=== PATIENT | female | born 1955 | race Hispanic/Latino ===

== ENCOUNTER 2018-09-17 17:53 | Emergency (ER) | payer OTHER ==
[~2018-09-17] VITALS: Ht 162.6 cm; Wt 90.7 kg
[2018-09-17] MEDS ORDERED: ASPIRIN 81 MG CHEW TAB PO ONE (18:30)
--- NOTE | 2018-09-17 19:02 | Diagnostic Imaging Report ---
Exam: Head CT without contrast Indication: Left sided numbness Comparison: None Technique: Axial images were obtained from the skull base to the vertex. Coronal and sagittal reconstructions obtained from the axial data. Dose modulation, iterative reconstruction, and/or weight based adjustment of the mA/kV was utilized to reduce the radiation dose to as low as reasonably achievable. Findings: Scalp/skull: No abnormalities. No fractures, blastic or lytic lesions. Incidental hyperostosis frontalis. Extra-axial spaces: No masses. No fluid collections. Brain sulci: Appropriate for age. Ventricles: Normal in size and configuration. No hydrocephalus. Parenchyma: No abnormal densities. No masses, hemorrhage, acute or chronic cortical vascular insults. Sellar/suprasellar region: No abnormalities Craniocervical junction: Patent foramen magnum. No Chiari one malformation. Findings: Mucous retention cyst within the left maxillary sinus. IMPRESSION: No intracranial abnormalities. A preliminary report was provided by Dr. Garzon on 09/17/2018 7:02 PM. I have reviewed the images and agree with the findings in the preliminary report. Signed by: Dr. Farzaneh Pérez M.D. on 09/17/2018 7:57 PM
== END 2018-09-17 20:49 | disposition home or self-care (01) ==
LOC: FSED 17:53
DX: R51 Headache (principal); I10 Essential (primary) hypertension; E11.65 Type 2 diabetes mellitus with hyperglycemia
CPT/HCPCS: 70450; 80053; 81003; 82553; 84484; 99284

== ENCOUNTER 2019-10-31 18:30 | Emergency (ER) | payer OTHER ==
[~2019-10-31] VITALS: Ht 162.6 cm; Wt 91.3 kg
--- OUTSIDE RECORDS SUMMARY | 2019-10-31 18:33 | XMS REPORT ---
Author Author [facility] Address Unknown Phone Unavailable Care Team [facility]iders [facility] Director Name Role Phone Viktoriya MAYFIELD Unavailable Unavailable Problems This patient has no known problems. Allergies, Adverse Reactions, Alerts This patient has no known allergies or adverse reactions. Medications This patient has no known medications. Results Test Description Test Time Test Comments Text Results Atomic Results Result Comments SCR MAMM BILATERAL AIDA CAD DIGITAL 2019-01-14 10:48:15 - SCR MAMM BILATERAL AIDA CAD DIGITALBILATERAL DIGITAL SCREENING MAMMOGRAM 3D/2D WITH CAD: 01/12/2019CLINICAL: Asymptomatic. Digital breast tomosynthesis was performed in addition to routine CC and MLO views. Current mammographic images were evaluated by either a [employer] M-Vu or a [employer] ImageChecker CAD (computer aided detection system). Comparison is made to exams dated 09/06/2014 mammogram, mammogram, and 07/12/2009 mammogram - [facility]. There are scattered fibroglandular tissues in both breasts. No suspicious mass, architectural distortion, malignant type calcification, or lymph node abnormality detected. Breast architecture is stable compared to prior exams.IMPRESSION: NEGATIVEThere is no mammographic evidence of malignancy. Resume annual screening mammography in one year. La munoz/penrad:01/14/2019 10:48:15 Audit Associate: Mona MCKEON, [facility] sent: BIRADS 1-2 Normal Mammogram BI-RADS: [address] BRAIN WO-HOPD 2018-09-17 18:55:[address] [address] Patient Name: LIZBETH MONTALVO MR #: [id number] : 1955 Age/Sex: 62/F Req #: [id number] Adm Physician: Ordered by: WILLY JAMES MD Report #: [id number] Location: [facility] Room/Bed: Procedure: [id number] HOPD/CT BRAIN WO-HOPD Exam Date: 09/17/18 Exam Time: 1824 REPORT STATUS: Signed Exam: Head CT without contrast Indication: Left sided numbness Comparison: None Technique: Axial images were obtained from the skull base to the vertex. Coronal and sagittal reconstructions obtained from the axial data. Dose modulation, iterative reconstruction, and/or weight based adjustment of the mA/kV was utilized to reduce the radiation dose to as low as reasonably achievable. Findings: Scalp/skull: No abnorma lities. No fractures, blastic or lytic lesions. Incidental hyperostosis frontalis. Extra-axial spaces: No masses. No fluid collections. Brain sulci: Appropriate for age. Ventricles: Normal in size and configuration. No hydrocephalus. Parenchyma: No abnormal densities. No masses, hemorrhage, acute or chronic cortical vascular insults. Sellar/suprasellar region: No abnormalities Craniocervical junction: Patent foramen magnum. No Chiari one malformation. Findings: Mucous retention cyst within the left maxillary sinus. IMPRESSION: No intracranial abnormalities. A preliminary report was provided by Dr. Garzon on 09/17/2018 7:02 PM. I have reviewed the images and agree with the findings in the preliminary report. Signed by: Dr. Farzaneh Pérez M.D. on 09/17/2018 7:57 PM Dictated By: FARZANEH PÉREZ MD 55 Transcribed By: PIERRE on 09/17/181956 COPY TO: WILLY JAMES MD
[2019-10-31] MEDS ORDERED: METFORMIN HCL500 MG PO (18:53)
[2019-10-31] MEDS ORDERED: VITAMIN B-121000 MCG PO (18:53)
[2019-10-31] MEDS ORDERED: LOSARTAN POTASS25 MG (18:53)
[2019-10-31] MEDS ORDERED: VITAMIN D400 UNIT PO (18:53)
[2019-10-31] MEDS ORDERED: CLONIDINE HCL0.1 MG PO (18:53)
--- NOTE | 2019-10-31 20:02 | Diagnostic Imaging Report ---
KNEE 3VW RT - HOPD - 3 views HISTORY: Pain COMPARISON: None available. FINDINGS: Bones: No acute displaced fracture. Osseous alignment is within normal limits. Joints: The joint spaces are well-maintained. Soft tissues: The soft tissues appear unremarkable. IMPRESSION: No acute radiographic abnormality. Signed by: Dr. Jasvir Freitas MD on 10/31/2019 7:58 PM
--- NOTE | 2019-10-31 20:02 | Diagnostic Imaging Report ---
KNEE 3VW LT - HOPD - 3 views HISTORY: Pain COMPARISON: None available. FINDINGS: Bones: No acute displaced fracture. Osseous alignment is within normal limits. Joints: The joint spaces are well-maintained. Soft tissues: The soft tissues appear unremarkable. IMPRESSION: No acute radiographic abnormality. Signed by: Dr. Jasvir Freitas MD on 10/31/2019 7:59 PM
--- NOTE | 2019-10-31 20:34 | Diagnostic Imaging Report ---
History: Trauma, fall, pain Comparison studies: None Technique: Axial images were obtained through the cervical region.. Coronal and sagittal images reconstructed from the axial data.. Intravenous contrast: None Findings: Fractures: None. Soft tissue injuries: None. Atlantoaxial articulation: Intact. Alignment: Mild reversal usual cervical lordotic curvature. Mild convex right cervical curvature is nonspecific but may be positional or related to muscle spot in the proper clinical setting. Cervicomedullary junction: No abnormalities. The foramen magnum is patent. Soft tissues: No gross acute abnormalities. Vertebrae: No fractures, infection or neoplasm. Degenerative changes: Mild multilevel disc degeneration. Small anterior bridging osteophyte at C5-C6 indents the prevertebral soft tissues. 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 Ossified posterior longitudinal ligament at C6 and C7 also indent the thecal sac. Mild multilevel uncovertebral and facet arthrosis without significant foraminal stenosis. The anterior T2 and T3 vertebral bodies are fused. Incidental findings: Small right tracheal diverticulum at the thoracic inlet. Partially imaged left maxillary sinus is partially opacified, likely by retention cyst or polyp. IMPRESSION: 1. No cervical spine fracture or subluxation. 2. Mild multilevel degenerative changes as described. 3. Ligament, spinal cord and or vascular abnormalities cannot be excluded on the basis of this examination Signed by: Dr. Mando Michelle M.D. on 10/31/2019 8:30 PM
[2019-10-31 21:36] VITALS: BP 140/77
== END 2019-10-31 21:44 | disposition home or self-care (01) ==
LOC: FSED 18:30
DX: S80.02XA Contusion of left knee, initial encounter (principal); S80.01XA Contusion of right knee, initial encounter; S16.1XXA Strain of muscle, fascia and tendon at neck level, initial encounter; W01.0XXA Fall on same level from slipping, tripping and stumbling without subsequent striking against object, initial encounter; Y93.01 Activity, walking, marching and hiking; Y92.488 Other paved roadways as the place of occurrence of the external cause; I10 Essential (primary) hypertension; E11.9 Type 2 diabetes mellitus without complications
CPT/HCPCS: 72125; 99283

== ENCOUNTER 2021-02-23 10:33 | Emergency (ER) | payer MEDICARE, OTHER ==
[~2021-02-23] VITALS: Ht 162.6 cm; Wt 91.2 kg
[~2021-02-23 10:33] MED LIST: CLONIDINE HCL0.1 MG PO; LOSARTAN POTASS25 MG; METFORMIN HCL500 MG PO; VITAMIN B-121000 MCG PO; VITAMIN D400 UNIT PO
[2021-02-23] MEDS ORDERED: PANTOPRAZOLE 40 MG 10ML VIAL IV STA (11:09)
[2021-02-23] MEDS ORDERED: SODIUM CHLORIDE 0.9% 1000ML 1,000 ML IV STA (11:09)
[2021-02-23] MEDS ORDERED: KETOROLAC TROMETHAMINE 30 MG/ML VIAL IV STA (11:09)
[2021-02-23] MEDS ORDERED: ONDANSETRON HCL INJ 2MG/ML 2ML 2 MG/ML VIAL IV STA (11:09)
[2021-02-23 11:35] LABS: BASOPHILS % 0.4 % (0.0-1.0); EOSINOPHILS # (AUTO) 0.1 (0.0-0.4); EOSINOPHILS % 1.6 % (0.0-6.0); HEMATOCRIT 39.1 % (34.2-44.1); HEMOGLOBIN 12.8 g/dL (12.0-16.0); LYMPHOCYTES # (AUTO) 0.4 (1.0-3.2); LYMPHOCYTES % 6.3 % (18.0-39.1); MEAN CORPUSCULAR HEMOGLOBIN 30.3 pg (28-32); MEAN CORPUSCULAR HGB CONC 32.7 g/dL (31-35); MEAN CORPUSCULAR VOLUME 92.7 fL (81-99); MONOCYTES # (AUTO) 0.3 (0.2-0.8); MONOCYTES % 3.9 % (4.4-11.3); NEUTROPHILS # (AUTO) 6.1 (2.1-6.9); NEUTROPHILS % 87.5 % (38.7-80.0); PLATELET COUNT 217 x10e3/uL (140-360); RED BLOOD COUNT 4.22 x10e6/uL (3.6-5.1); RED CELL DISTRIBUTION WIDTH 12.9 % (11.7-14.4)
[2021-02-23 11:45] LABS: INR 0.89; PROTHROMBIN TIME 12.6 seconds (11.9-14.5)
[2021-02-23 11:46] LABS: CLARITY,URINE CLEAR (CLEAR); COLOR,URINE YELLOW (YELLOW); KETONES,URINE NEGATIVE (NEGATIVE); LEUKOCYTE ESTERASE ,URINE NEGATIVE (NEGATIVE); NITRITE,URINE NEGATIVE (NEGATIVE); PARTIAL THROMBOPLASTIN TIME 26.6 seconds (23.8-35.5); PROTEIN,URINE DIPSTICK NEGATIVE (NEGATIVE); URINE UROBILINOGEN 0.2 mg/dL (0.2 - 1)
[2021-02-23 11:56] LABS: ALANINE AMINOTRANSFERASE 24 IU/L (0-55); ALBUMIN 3.9 g/dL (3.5-5.0); ALBUMIN/GLOBULIN RATIO 1.1 (0.8-2.0); ALKALINE PHOSPHATASE 77 IU/L (40-150); ANION GAP 14.1 mmol/L (8-16); BLOOD UREA NITROGEN 18 mg/dL (7-26); BUN/CREATININE RATIO 25 (6-25); CALCIUM 8.7 mg/dL (8.4-10.2); CARBON DIOXIDE 29 mmol/L (22-29); CHLORIDE 102 mmol/L (98-107); CREATINE KINASE 43 IU/L (29-168); CREATININE, SERUM 0.73 mg/dL (0.57-1.11); EST GLOMERULAR FILTRATION RATE > 60 ML/MIN (60-); GLUCOSE 193 mg/dL (74-118); MAGNESIUM 1.6 MG/DL (1.3-2.1); POTASSIUM 4.1 mmol/L (3.5-5.1); SODIUM 141 mmol/L (136-145)
[2021-02-23 12:02] LABS: BACTERIA,URINE RARE /HPF; EPITHELIAL CELLS,URINE FEW /LPF; RBC,URINE 0-5 /HPF (0-5); WBC,URINE (MAN) 0-5 /HPF (0-5)
[2021-02-23] MEDS ORDERED: SODIUM CHLORIDE 0.9% 50ML 50 ML ONE (12:13)
[2021-02-23] MEDS ORDERED: IOPAMIDOL 370 MG/ML 200 ML INFUS..BTL INJ ONE (12:14)
[2021-02-23 14:21] VITALS: BP 140/63
== END 2021-02-23 14:24 | disposition home or self-care (01) ==
LOC: ER 11:10
DX: R11.2 Nausea with vomiting, unspecified (principal); R51.9 Headache, unspecified; I10 Essential (primary) hypertension; E11.9 Type 2 diabetes mellitus without complications; Z88.6 Allergy status to analgesic agent; Z88.0 Allergy status to penicillin; R10.32 Left lower quadrant pain
CPT/HCPCS: 36415; 70450; 74177; 80053; 81001; 82550; 82553; 83735; 84484; 85025; 85610; 85730; 87086; 93005; 99284; C9113; J1885; J2405; J7030; Q9967